=== PATIENT | female | born 1975 | race Caucasian/White ===

== ENCOUNTER → 2019-10-30 | Outpatient (CLI) | payer OTHER ==
--- NOTE | 2019-10-30 14:17 | Diagnostic Imaging Report ---
EXAMINATION: SP LUMBAR, COMPLETE MIN 4VW, SACRUM X-RAY INDICATION: Spondylosis COMPARISON: None FINDINGS: Lumbar spine: AP, lateral and oblique images of the lumbar spine demonstrate no acute fracture. Vertebral body heights are maintained. Alignment is anatomic. Oblique images demonstrate no evidence of spondylolysis. No substantial degenerative changes. Nonobstructive bowel gas pattern. Status post cholecystectomy. Surgical clip in the left pelvis. Sacrum/coccyx: No acute fracture or dislocation. Alignment is anatomic. Soft tissues appear unremarkable. IMPRESSION: No acute osseous injury of the lumbar spine, sacrum or coccyx. Signed by: Michelle Wilkinson MD on 10/30/2019 2:14 PM
== END ==
LOC: RAD 13:01
PROVIDERS: ATTEND Internal Medicine
DX: M47.816 Spondylosis without myelopathy or radiculopathy, lumbar region (principal)
CPT/HCPCS: 72110; 72220